=== PATIENT | male | born 1985 | race Caucasian/White ===

== ENCOUNTER → 2017-12-30 | Emergency (ER) | payer OTHER ==
[~2017-12-30] VITALS: Ht 172.7 cm; Wt 81.6 kg
[~2017-12-30] MED LIST: INTESTINEX1 CAP PO; PROTONIX40 MG PO
== END | disposition left against medical advice (07) ==
LOC: ER 22:56
DX: Z53.20 Procedure and treatment not carried out because of patient's decision for unspecified reasons (principal)

== ENCOUNTER 2019-05-01 16:02 | Emergency (ER) | payer OTHER ==
[~2019-05-01] VITALS: Ht 170.2 cm; Wt 99.8 kg
[2019-05-01] MEDS ORDERED: [UNRECOGNIZED DRUG - OTHER] (16:16)
== END 2019-05-01 20:40 | disposition home or self-care (01) ==
LOC: ER 16:02
DX: S20.212A Contusion of left front wall of thorax, initial encounter (principal); S40.012A Contusion of left shoulder, initial encounter; V19.9XXA Pedal cyclist (driver) (passenger) injured in unspecified traffic accident, initial encounter; Y93.89 Activity, other specified; Y92.89 Other specified places as the place of occurrence of the external cause; Y99.8 Other external cause status

== ENCOUNTER 2024-09-28 10:24 | Outpatient (CLI) | payer OTHER ==
[~2024-09-28 10:24] MED LIST changes: +[UNRECOGNIZED DRUG - OTHER]
== END 2024-09-28 10:31 | disposition home or self-care (01) ==
LOC: RAD 10:24
DX: R06.01 Orthopnea (principal)

== ENCOUNTER 2024-12-05 23:47 | Emergency (ER) | payer OTHER ==
[~2024-12-05] VITALS: Ht 170.2 cm; Wt 99.8 kg
[2024-12-06] MEDS ORDERED: 0.9 % SODIUM CHLORIDE 1,000 ML IV STA (00:54)
[2024-12-06] MEDS ORDERED: METOCLOPRAMIDE HCL 5 MG/ML VIAL IM STA (00:55)
[2024-12-06] MEDS ORDERED: MORPHINE SULFATE 2 MG/ML SYRINGE IV STA (00:55)
[2024-12-06 01:38] LABS: HEMATOCRIT 50.7 % (39.0-48.0); MEAN CELL VOLUME 88.7 fL (80.0-100.00); MEAN CORPUSCULAR HGB CONC 33.6 g/dl (32.0-36.0); PLATELET COUNT 322 K/uL (150-450); RED BLOOD COUNT 5.72 M/uL (4.00-6.00); RED CELL DISTRIBUTION WIDTH 13.3 % (11.5-14.5)
[2024-12-06 01:39] LABS: MEAN CORPUSCULAR HEMOGLOBIN 29.7 pg (27.00-32.0)
[2024-12-06 01:46] LABS: INR 1.05; PARTIAL THROMBOPLASTIN TIME 27.5 SECONDS (22.0-34.0); PROTHROMBIN TIME 11.4 SECONDS (9.0-11.5)
[2024-12-06 01:50] LABS: BILIRUBIN TOTAL 0.81 mg/dL (0.3-1.2); CALCIUM 9.2 mg/dL (8.5-10.1); CREATININE SERUM 0.95 mg/dL (0.70-1.30); GFR 87.37; GLOBULINA 3.6 G/DL (2.4-3.5); POTASSIUM 4.28 mEq/L (3.5-5.1); TOTAL PROTEIN 7.6 gm/dL (6.4-8.2)
[2024-12-06] MEDS ORDERED: MORPHINE SULFATE 4 MG/ML CARTRIDGE IV STA (05:55)
[2024-12-06] MEDS ORDERED: PROMETHAZINE HCL 50 MG/ML AMPUL IM STA (07:30)
[2024-12-06] MEDS ORDERED: HYOSCYAMINE SULFATE 0.125 MG TAB.SUBL SL ONE (10:15)
[2024-12-06] MEDS ORDERED: MAG HYDROX/ALUMINUM HYD/SIMETH 30 ML BLIST.PACK PO ONE (10:15)
== END 2024-12-06 12:01 | disposition home or self-care (01) ==
LOC: ER 23:49
DX: T50.905A Adverse effect of unspecified drugs, medicaments and biological substances, initial encounter (principal); Y92.89 Other specified places as the place of occurrence of the external cause; K42.9 Umbilical hernia without obstruction or gangrene